=== PATIENT | male | born 1950 ===

== ENCOUNTER 2025-07-30 01:16 | Outpatient (CLI) | payer OTHER, SELFPAY ==
--- NOTE | 2025-08-04 13:37 | W.PFT ---
Date of service: 07/30/25 Time of Service: 11:26 Pulmonary Function Test Result Indications: Dyspnea on exertion Impression 1. Good patient effort was noted. ATS standards for reproducibility were met. 2. Spirometry showed moderate obstructive lung disease with an FEV1 of 74% (2.05 L) 3. Following the administration of a bronchodilator there was not a significant response
== END 2025-07-30 01:17 | disposition home or self-care (01) ==
LOC: RT 01:16
PROVIDERS: Visit Provider Chiropractor
DX: J44.9 Chronic obstructive pulmonary disease, unspecified (principal); R06.09 Other forms of dyspnea
CPT/HCPCS: 94060